=== PATIENT | male | born 1945 | race Caucasian/White ===

== ENCOUNTER → 2024-08-28 | Outpatient (CLI) | payer MEDICARE, MEDICAID, SELFPAY ==
--- NOTE | 2024-08-28 14:00 | MRI_ITS ---
PROCEDURE: SPINE LUMBAR (ROUTINE) 08/28/2024 REASON FOR EXAM: PAIN TECHNIQUE: SPINE LUMBAR (ROUTINE) COMPARISON: None FINDINGS: Vertebrae: The vertebral body height is preserved with no evidence of bony fracture or dislocation. There is severe narrowing of the intervertebral disc of L3-L4 with severe sclerosis of the corresponding vertebral endplates. There is leftward scoliosis with its angle tip at the level of L2 estimated at 112???. Alignment: There is straightening of the lumbar lordosis with severe leftward scoliosis as described above. Its angle tip is at the level of L2 estimated at 112???. Conus Medullaris: Well visualized and terminates at the level of T12-L1 L1-2: Narrowing of the intervertebral disc with disc dehydration. No disc protrusion/herniation. Degenerative changes are seen involving the intervertebral facet joints. L2-3: Severe narrowing of the intervertebral disc with disc dehydration. No disc herniation or spinal stenosis. Degenerative changes are seen involving the intervertebral facet joints. L3-4: Severe narrowing of the intervertebral disc with sclerosis of the vertebral endplates, vacuum disc formation, anterior and posterior hypertrophic changes. Severe spinal stenosis with narrowing of the AP diameter to approximately 3 mm. Associated severe hypertrophic changes involving the intervertebral facet joints. L4-5: The disc is dehydrated with loss of intervertebral disc height. Minimal central posterior disc bulge is seen slight impingement on the anterior aspect of the thecal sac. Degenerative changes are seen involving the intervertebral facet joints. L5-S1: The disc height is well preserved with minimal disc dehydration. No disc protrusion or spinal stenosis. Sacrum: There is bilateral sacroiliitis. MRI/Spine Lumbar (Routine) IMPRESSION: Scoliosis. Degenerative disc disease, worse at the level of L3-L4 with associated hypertro phic changes. 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 Reading Location: [facility]
== END | disposition home or self-care (01) ==
PROVIDERS: PCP Internal Medicine Infectious Disease; Referring Provider Orthopaedic Surgery Orthopaedic Surgery of the Spine; Visit Provider Orthopaedic Surgery Orthopaedic Surgery of the Spine
DX: M54.16 Radiculopathy, lumbar region (principal); R53.1 Weakness; M41.56 Other secondary scoliosis, lumbar region
CPT/HCPCS: 72148